=== PATIENT | male | born 1950 | race Asian ===

== ENCOUNTER 2017-05-02 07:19 | Outpatient (CLI) | payer OTHER ==
[2017-05-02 12:26] LABS: HEMOGLOBIN A1C 0.48 g/dL
[2017-05-02 12:29] LABS: ALBUMIN/GLOBULIN RATIO 1.1 (1.0-2.2); BILIRUBIN,TOTAL 0.9 mg/dL (0.2-1.0); BUN - BLOOD UREA NITROGEN 20 mg/dL (6-20); CALCIUM 9.1 mg/dL (8.5-10.3); CARBON DIOXIDE - CO2 28 mmol/L (21-32); CHLORIDE 105 mmol/L (101-111); CHOL/HDL RATIO 3.6 (<5.0); CHOLESTEROL 199 mg/dL; GFR - MDRD 74 (>89); GLUCOSE 115 mg/dL (70-100); HDL CHOLESTEROL 56 mg/dL; POTASSIUM 4.2 mmol/L (3.5-5.0); SODIUM 140 mmol/L (135-145); TOTAL PROTEIN 7.3 g/dL (6.7-8.2); TRIGLYCERIDES 154 mg/dL; URIC ACID 10.1 mg/dL (2.6-7.2); VLDL CHOLESTEROL 31 mg/dL
[2017-05-02 12:30] LABS: PSA TOTAL 2.15 ng/mL (0.000-2.000)
== END 2017-05-02 07:20 | disposition home or self-care (01) ==
LOC: LAB.F 07:19
PROVIDERS: ATTEND Family Medicine
DX: M10.9 Gout, unspecified (principal); E78.5 Hyperlipidemia, unspecified; I10 Essential (primary) hypertension; Z12.5 Encounter for screening for malignant neoplasm of prostate
CPT/HCPCS: 36415; 80053; 80061; 83036; 84153; 84403; 84550

== ENCOUNTER 2017-06-01 07:30 | Outpatient (CLI) | payer OTHER ==
[2017-06-01 10:55] LABS: PSA FREE 0.25 ng/mL (0.16-2.81)
[2017-06-01 10:56] LABS: PSA TOTAL 1.38 ng/mL (0.000-2.000)
== END 2017-06-01 07:31 | disposition home or self-care (01) ==
LOC: LAB.F 07:30
PROVIDERS: ATTEND Physician Assistant Medical
DX: R97.20 Elevated prostate specific antigen [PSA] (principal)
CPT/HCPCS: 36415; 84154

== ENCOUNTER 2018-06-04 07:17 | Outpatient (CLI) | payer OTHER ==
[2018-06-04 12:27] LABS: ALBUMIN 3.9 g/dL (3.2-5.5); ALBUMIN/GLOBULIN RATIO 1.1 (1.0-2.2); ALKALINE PHOSPHATASE 64 IU/L (42-121); ALT ALANINE AMINOTRANSFERASE 25 IU/L (10-60); AST ASPARTATE AMINOTRANSFERASE 33 IU/L (10-42); BASOPHILS # (AUTO) 0.1 10^3/uL (0.0-0.1); BASOPHILS % (AUTO) 1.1 %; BILIRUBIN,TOTAL 1.2 mg/dL (0.2-1.0); BUN - BLOOD UREA NITROGEN 17 mg/dL (6-20); CARBON DIOXIDE - CO2 25 mmol/L (21-32); CHLORIDE 103 mmol/L (101-111); CHOL/HDL RATIO 3.6 (<5.0); CHOLESTEROL 208 mg/dL; EOSINOPHILS # (AUTO) 0.4 10^3/uL (0.0-0.7); EOSINOPHILS % (AUTO) 7.5 %; GFR - MDRD 74 (>89); GLUCOSE 101 mg/dL (70-100); HDL CHOLESTEROL 58 mg/dL; HGB - HEMOGLOBIN 13.2 g/dL (14.0-18.0); LDL CHOLESTEROL,CALCULATED 104 mg/dL; LDL/HDL RATIO 1.8 (<3.6); LYMPHOCYTES # (AUTO) 2.4 10^3/uL (1.5-3.5); LYMPHOCYTES % (AUTO) 42.6 %; MEAN CORPUSCULAR HEMOGLOBIN 21.3 pg (27.0-31.0); MEAN CORPUSCULAR HGB CONC 30.8 g/dL (32.0-36.0); MEAN CORPUSCULAR VOLUME 69.1 fL (80.0-94.0); MEAN PLATELET VOLUME 9.1 fL (7.4-11.4); MONOCYTES # (AUTO) 0.6 10^3/uL (0.0-1.0); MONOCYTES % (AUTO) 10.3 %; NEUTROPHILS # (AUTO) 2.2 10^3/uL (1.5-6.6); NEUTROPHILS % (AUTO) 38.5 %; PLT - PLATELET COUNT 175 10^3/uL (130-450); RED CELL DISTRIBUTION WIDTH 16.6 % (12.0-15.0); SODIUM 137 mmol/L (135-145); TOTAL PROTEIN 7.5 g/dL (6.7-8.2); VLDL CHOLESTEROL 46 mg/dL; WHITE BLOOD COUNT 5.7 x10^3/uL (4.8-10.8)
[2018-06-04 13:50] LABS: PLATELET ESTIMATE, MANUAL NORMAL (130-450,000) (NORMAL); PLATELET MORPHOLOGY NORMAL APPEARANCE (NORMAL)
== END 2018-06-04 07:18 | disposition home or self-care (01) ==
LOC: LAB.F 07:17
PROVIDERS: ATTEND Physician Assistant Medical
DX: I10 Essential (primary) hypertension (principal); E78.5 Hyperlipidemia, unspecified; Z12.5 Encounter for screening for malignant neoplasm of prostate
CPT/HCPCS: 36415; 80053; 80061; 83721; 84153; 85025

== ENCOUNTER 2018-07-24 07:13 | Outpatient (CLI) | payer OTHER ==
[2018-07-24 11:21] LABS: BASOPHILS # (AUTO) 0.1 10^3/uL (0.0-0.1); BASOPHILS % (AUTO) 0.9 %; EOSINOPHILS # (AUTO) 0.4 10^3/uL (0.0-0.7); EOSINOPHILS % (AUTO) 5.8 %; HGB - HEMOGLOBIN 12.3 g/dL (14.0-18.0); LYMPHOCYTES # (AUTO) 2.8 10^3/uL (1.5-3.5); LYMPHOCYTES % (AUTO) 40.7 %; MEAN CORPUSCULAR HEMOGLOBIN 21.5 pg (27.0-31.0); MEAN CORPUSCULAR HGB CONC 31.5 g/dL (32.0-36.0); MEAN PLATELET VOLUME 8.4 fL (7.4-11.4); MONOCYTES # (AUTO) 0.6 10^3/uL (0.0-1.0); MONOCYTES % (AUTO) 8.7 %; NEUTROPHILS # (AUTO) 3.1 10^3/uL (1.5-6.6); NEUTROPHILS % (AUTO) 43.9 %; PLT - PLATELET COUNT 238 10^3/uL (130-450); RED BLOOD COUNT 5.72 10^6/uL (4.70-6.10); RED CELL DISTRIBUTION WIDTH 16.5 % (12.0-15.0)
[2018-07-24 11:38] LABS: RBC MORPHOLOGY (MULTIPLE) 1+ ANISOCYTOSIS (NORMAL)
== END 2018-07-24 07:14 | disposition home or self-care (01) ==
LOC: LAB.F 07:13
PROVIDERS: ATTEND Physician Assistant Medical
DX: D64.9 Anemia, unspecified (principal)
CPT/HCPCS: 36415; 85025

== ENCOUNTER 2018-08-14 07:58 | Outpatient (CLI) | payer OTHER | END 2018-08-14 07:59 | disposition home or self-care (01) | LOC: LAB.F 07:58 | PROVIDERS: ATTEND Physician Assistant Medical | DX: D64.9 Anemia, unspecified (principal); E83.110 Hereditary hemochromatosis | CPT/HCPCS: 36415; 82728 ==

== ENCOUNTER 2019-07-19 07:30 | Outpatient (CLI) | payer OTHER ==
[2019-07-19 10:20] LABS: BASOPHILS % (AUTO) 0.7 %; EOSINOPHILS # (AUTO) 0.3 10^3/uL (0.0-0.7); HGB - HEMOGLOBIN 11.6 g/dL (14.0-18.0); LYMPHOCYTES # (AUTO) 2.7 10^3/uL (1.5-3.5); LYMPHOCYTES % (AUTO) 44.1 %; MEAN CORPUSCULAR HGB CONC 30.9 g/dL (32.0-36.0); MEAN PLATELET VOLUME 10.5 fL (7.4-11.4); MONOCYTES # (AUTO) 0.6 10^3/uL (0.0-1.0); MONOCYTES % (AUTO) 9.6 %; NEUTROPHILS # (AUTO) 2.4 10^3/uL (1.5-6.6); NEUTROPHILS % (AUTO) 40.3 %; PLT - PLATELET COUNT 216 10^3/uL (130-450); RED BLOOD COUNT 5.53 10^6/uL (4.70-6.10)
[2019-07-19 10:52] LABS: ALBUMIN 3.5 g/dL (3.2-5.5); ALKALINE PHOSPHATASE 61 IU/L (42-121); ALT ALANINE AMINOTRANSFERASE 22 IU/L (10-60); AST ASPARTATE AMINOTRANSFERASE 32 IU/L (10-42); BILIRUBIN,TOTAL 0.9 mg/dL (0.2-1.0); BUN - BLOOD UREA NITROGEN 21 mg/dL (6-20); CALCIUM 8.7 mg/dL (8.5-10.3); CARBON DIOXIDE - CO2 26 mmol/L (21-32); CHLORIDE 108 mmol/L (101-111); CHOL/HDL RATIO 3.9 (<5.0); CHOLESTEROL 220 mg/dL; CREATININE 0.9 mg/dL (0.6-1.2); GFR - MDRD 83 (>89); GLUCOSE 97 mg/dL (70-100); HB2 TOTAL 12.3 g/dL; HDL CHOLESTEROL 57 mg/dL; HEMOGLOBIN A1C 0.5 g/dL; HEMOGLOBIN A1C % 5.9 % (4.6-6.2); LDL CHOLESTEROL,CALCULATED 133 mg/dL; LDL/HDL RATIO 2.3 (<3.6); SODIUM 141 mmol/L (135-145); TOTAL PROTEIN 6.9 g/dL (6.7-8.2); URIC ACID 9.3 mg/dL (2.6-7.2); VLDL CHOLESTEROL 30 mg/dL
== END 2019-07-19 07:31 | disposition home or self-care (01) ==
LOC: LAB.S 07:30
PROVIDERS: ATTEND Physician Assistant Medical
DX: I10 Essential (primary) hypertension (principal); R73.01 Impaired fasting glucose; E78.5 Hyperlipidemia, unspecified; M10.9 Gout, unspecified; E83.110 Hereditary hemochromatosis
CPT/HCPCS: 36415; 80053; 80061; 82728; 83036; 83721; 84550; 85025

== ENCOUNTER → 2021-01-01 | Outpatient (CLI) | payer OTHER ==
--- NOTE | 2021-01-01 10:23 | XRAY Report ---
PROCEDURE: Wrist 3 View LT INDICATIONS: LEFT CARPAL TUNNEL SYNDROME TECHNIQUE: 3 views of the wrist were acquired. COMPARISON: None FINDINGS: Bones: No fractures or dislocations. There is diffuse joint space loss of the radiocarpal articulati on. Corticated fragmentation of the ulnar styloid. There are severe, chronic appearing degenerative c hanges partially seen at the fifth PIP joint including osseous remodeling and erosive changes of the fifth proximal phalanx head. There are moderate degenerative change at the first MCP joint. No suspic ious bony lesions. Scaphoid view: Not performed Soft tissues: No suspicious soft tissue calcifications. Soft tissue thickening and densities surrou nding the distal ulna and ulnar styloid. Partially imaged soft tissue thickening around the fifth pro ximal phalanx and focal dorsal thickening over the second MCP joint. Increased soft tissue density ad jacent to the first and fifth MCP joint as well. IMPRESSION: 1. There is diffuse joint space loss at the radiocarpal articulation. 2. Soft tissue pannus formation at the ulnar styloid, first, second, fifth MCP joints, and erosive ch anges at the fifth proximal phalanx head.. Reviewed by: Kassy Mcneal MD on 01/01/2021 9:21 AM [place] Approved by: Kassy Mcneal MD on 01/01/2021 9:21 AM [place] Station ID: [id number]
== END ==
LOC: DI.N 07:00
PROVIDERS: ATTEND Orthopaedic Surgery
DX: G56.02 Carpal tunnel syndrome, left upper limb (principal)

== ENCOUNTER 2021-03-04 10:23 | Outpatient (CLI) | payer MEDICARE | END 2021-03-04 10:24 | disposition critical access hospital (66) | LOC: EMS 10:23 | DX: R40.20 Unspecified coma (principal) | CPT/HCPCS: A0425; A0427 ==

== ENCOUNTER 2021-03-04 10:42 | Emergency (ER) | payer OTHER ==
[2021-03-04] MEDS ORDERED: MIDAZOLAM 2 MG/2 ML VIAL ONE (10:55)
[2021-03-04] MEDS ORDERED: SODIUM CHLORIDE 0.9% 1,000 ML IV STA (10:56)
[2021-03-04] MEDS ORDERED: ASPIRIN CHEW 81 MG TABLET PO STA (10:56)
[2021-03-04] MEDS ORDERED: AMIODARONE 150 MG/100 ML 100 ML IV ONE (10:57)
--- OUTSIDE RECORDS SUMMARY | 2021-03-04 10:59 | EXTERNAL MEDICAL SUMMARY RPT | Continuity of Care Document ---
:1950 Demographics Phone Unavailable Preferred Language Unknown Marital Status Unknown Mosque Affiliation Unknown Race Unknown Ethnic Group Unknown Author Organization [place] Address [address] [id number] Phone Social History date description facility [phone]
[2021-03-04] MEDS ORDERED: AMIODARONE 360 MG/200 ML 200 ML IV ONE (11:06)
[2021-03-04] MEDS ORDERED: ASPIRIN 325 MG TABLET PO STA (11:06)
[2021-03-04 11:07] LABS: BASOPHILS % (AUTO) 0.4 %; EOSINOPHILS # (AUTO) 0.2 10^3/uL (0.0-0.7); EOSINOPHILS % (AUTO) 1.8 %; HCT - HEMATOCRIT 33.1 % (42.0-52.0); HGB - HEMOGLOBIN 10.2 g/dL (14.0-18.0); LYMPHOCYTES # (AUTO) 4.7 10^3/uL (1.5-3.5); LYMPHOCYTES % (AUTO) 43.1 %; MEAN CORPUSCULAR HEMOGLOBIN 20.6 pg (27.0-31.0); MEAN CORPUSCULAR HGB CONC 30.8 g/dL (32.0-36.0); MEAN CORPUSCULAR VOLUME 66.7 fL (80.0-94.0); MEAN PLATELET VOLUME 9.9 fL (7.4-11.4); MONOCYTES # (AUTO) 0.8 10^3/uL (0.0-1.0); MONOCYTES % (AUTO) 7.4 %; NEUTROPHILS # (AUTO) 4.8 10^3/uL (1.5-6.6); NEUTROPHILS % (AUTO) 43.6 %; NRBC ABSOLUTE COUNT (AUTO) 0.04 x10^3/uL; NUCLEATED RED BLOOD CELLS AUTO 0.4 /100WBC; PLT - PLATELET COUNT 245 10^3/uL (130-450); RED BLOOD COUNT 4.96 10^6/uL (4.70-6.10); RED CELL DISTRIBUTION WIDTH 17.5 % (12.0-15.0); WHITE BLOOD COUNT 10.9 x10^3/uL (4.8-10.8)
[2021-03-04] MEDS ORDERED: PROPOFOL 500 MG/50 ML 500 MG/50 ML VIAL IV STA (11:08)
[2021-03-04] MEDS ORDERED: fentaNYL 100 MCG/2 ML VIAL ONE (11:08)
[2021-03-04] MEDS ORDERED: fentaNYL 100 MCG/2 ML VIAL IVP STA (11:08)
[2021-03-04] MEDS ORDERED: LIDOCAINE 2000 MG/500 ML 2,000 MG/500 ML BAG IV STA (11:09)
[2021-03-04 11:11] VITALS: BP 149/100
--- NOTE | 2021-03-04 11:17 | ED Physician Documentation ---
History of Present Illness - Stated complaint Stated Complaint: CPR - Chief complaint Chief Complaint: Cardiac - History obtained from History obtained from: EMS - Additonal information Additional information: 70yM with pmh htn presents s/p witnessed cardiac arrest with bystander (son) initiated CPR right away. on ems arrival he was found to be in vfib, shocked, with rosc. Epi was administered and lidocaine drip started. patient was intubated and brought to the ed. On arrival, strong concern for cardiac ischemia and patient was emergently transferred to [facility] for cardiac evaluation. further history limited by patient acuity. Review of Systems Unable to obtain: Other (ROS unable to obtain 2/2 patient acuity) PD PAST MEDICAL HISTORY - Past Medical History Cardiovascular: None Respiratory: None Neuro: None Endocrine/Autoimmune: None GI: None : None HEENT: None Psych: None Musculoskeletal: None Derm: None - Present Medications Home Medications: Ambulatory Orders Medication Instructions Recorded Confirmed Home Medications Unobtainable 03/04/21 03/04/21 [HOME MEDICATIONS UNOBTAINABLE] - Allergies Allergies/Adverse Reactions: Allergies Allergy/AdvReac Type Severity Reaction Status Date / Time No Known Drug Allergies Allergy Verified 09/25/18 15:44 PD ED PE NORMAL - Vitals Vital signs reviewed: Yes - General General: Other (intubated with ETT in place) - HEENT HEENT: Atraumatic, PERRL, Other (intubated) - Neck Neck: Other (no deformity) - Cardiac Cardiac: Strong equal pulses - Respiratory Respiratory: Other (BL breath sounds) - Abdomen Abdomen: Non tender, Non distended - Male Male : Other (duckworth placed in the ED) - Derm Derm: Warm and dry - Extremities Extremities: No deformity - Neuro Neuro: Other (intubated, gag intact. pupillary response intact) - Psych Psych: Other (intubated, post - ROSC) Results - Vitals Vitals: Vital Signs - 24 hr 03/04/21 03/04/21 10:41 11:06 Temperature 33.7 C L Heart Rate 77 82 Blood Pressure 149/100 H O2 Saturation 99 Oxygen O2 Source Ambu bag - Labs Labs: Laboratory Tests 03/04/21 03/04/21 03/04/21 11:00 11:00 11:00 WBC 10.9 H RBC 4.96 Hgb 10.2 L Hct 33.1 L MCV 66.7 L MCH 20.6 L MCHC 30.8 L RDW 17.5 H Plt Count 245 MPV 9.9 Neut # (Auto) 4.8 Lymph # (Auto) 4.7 H [place] # (Auto) 0.8 Eos # (Auto) 0.2 Baso # (Auto) 0.0 Absolute Nucleated RBC 0.04 Nucleated RBC % 0.4 Bld Gas Analysis Time Sample Site ABG pH ABG pCO2 ABG pO2 ABG HCO3 ABG Total CO2 ABG O2 Saturation ABG Base Excess Won Test Respiration Rate O2 Delivery Device Vent Mode FiO2 Tidal Volume PEEP Sodium 138 Potassium 3.7 Chloride 107 Carbon Dioxide 15 L Anion Gap 16.0 H BUN 30 H Creatinine 1.3 H Estimated GFR (MDRD) 54 L Glucose 236 H Calcium 8.5 Total Bilirubin 1.4 H AST 119 H ALT 111 H Alkaline Phosphatase 73 Troponin I High Sens 221.3 H* Total Protein 6.7 Albumin 3.7 Globulin 3.0 Albumin/Globulin Ratio 1.2 Lipase 51 Nasal Adenovirus (PCR) Nasal B. parapertussis DNA (PCR) Nasal Coronavir 229E PCR Nasal Coronavir HKU1 PCR Nasal Coronavir NL63 PCR Nasal Coronavir OC43 PCR Nasal Enterovir/Rhinovir PCR Nasal Influenza B PCR Nasal Influenza A PCR Nasal Parainfluen 1 PCR Nasal Parainfluen 2 PCR Nasal Parainfluen 3 PCR Nasal Parainfluen 4 PCR Nasal RSV (PCR) Nasal B.pertussis DNA PCR Nasal C.pneumoniae (PCR) Ian Human Metapneumo PCR Nasal M.pneumoniae (PCR) Nasal SARS-CoV-2 (PCR) 03/04/21 03/04/21 11:07 11:17 WBC RBC Hgb Hct MCV MCH MCHC RDW Plt Count MPV Neut # (Auto) Lymph # (Auto) [place] # (Auto) Eos # (Auto) Baso # (Auto) Absolute Nucleated RBC Nucleated RBC % Bld Gas Analysis Time 1114 Sample Site RIGHT RADIAL ABG pH 7.25 L ABG pCO2 36 ABG pO2 439 H* ABG HCO3 15.4 L ABG Total CO2 16.5 L ABG O2 Saturation 100 H ABG Base Excess -11.0 L Won Test POSITIVE Respiration Rate 20 O2 Delivery Device VENTILATOR Vent Mode ASSIST/CONTROL FiO2 100.00 Tidal Volume 450 PEEP 5 Sodium Potassium Chloride Carbon Dioxide Anion Gap BUN Creatinine Estimated GFR (MDRD) Glucose Calcium Total Bilirubin AST ALT Alkaline Phosphatase Troponin I High Sens Total Protein Albumin Globulin Albumin/Globulin Ratio Lipase Nasal Adenovirus (PCR) NOT DETECTED Nasal B. parapertussis DNA (PCR) NOT DETECTED Nasal Coronavir 229E PCR NOT DETECTED Nasal Coronavir HKU1 PCR NOT DETECTED Nasal Coronavir NL63 PCR NOT DETECTED Nasal Coronavir OC43 PCR NOT DETECTED Nasal Enterovir/Rhinovir PCR NOT DETECTED Nasal Influenza B PCR NOT DETECTED Nasal Influenza A PCR NOT DETECTED Nasal Parainfluen 1 PCR NOT DETECTED Nasal Parainfluen 2 PCR NOT DETECTED Nasal Parainfluen 3 PCR NOT DETECTED Nasal Parainfluen 4 PCR NOT DETECTED Nasal RSV (PCR) NOT DETECTED Nasal B.pertussis DNA PCR NOT DETECTED Nasal C.pneumoniae (PCR) NOT DETECTED Ian Human Metapneumo PCR NOT DETECTED Nasal M.pneumoniae (PCR) NOT DETECTED Nasal SARS-CoV-2 (PCR) NOT DETECTED PD MEDICAL DECISION MAKING - ED course ED course: 70-year-old man brought in by EMS status post witnessed arrest by son with bystander CPR started on scene. Upon EMS arrival he was found to be in V. fib, shocked with ROSC. They gave lidocaine at 2 mcg and found his EKG to be concerning for possible STEMI. Upon arrival to the ED patient intubated, gagging at vent. Push dose fentanyl, versed given for sedation. NG placed, ASA 324 given. ekg concerning for cardiac ischemia so code stemi was called to [facility]. d/w ED Dr. Rodriguez who accepts the patient in transfer and sent him the EKGs. awaiting discussion with cardiology. d/w Dr. Rausch, hospitalist accepting. Life flight wheeling him out now. - Critical Care Time(min): 30 Time Includes: Direct patient care, Reassess patient, Document care, Coordinate care, Medical consult, Family consult for vt oct Data interpretation: Labs, Pulse ox, ABG, CXR Departure - Departure Disposition: 02 Transfer Acute Care Hosp Clinical Impression: STEMI (ST elevation myocardial infarction), Cardiac arrest, Ventricular fibrillation Discharge Date/Time: 03/04/21 11:30
[2021-03-04 11:19] LABS: ABG PCO2 36 mmHg (34-45); ABG PH 7.25 (7.35-7.45)
[2021-03-04 11:19] LABS: ALBUMIN 3.7 g/dL (3.2-5.5); ALBUMIN/GLOBULIN RATIO 1.2 (1.0-2.2); BILIRUBIN,TOTAL 1.4 mg/dL (0.2-1.0); CALCIUM 8.5 mg/dL (8.5-10.3); CREATININE 1.3 mg/dL (0.6-1.2); POTASSIUM 3.7 mmol/L (3.5-5.0); TOTAL PROTEIN 6.7 g/dL (6.7-8.2)
[2021-03-04 11:20] LABS: ABG HCO3 15.4 mmol/L (22.0-26.0); ABG OXYGEN SATURATION 100 % (94-98); ABG TCO2 16.5 MMOL/L (21.0-29.0); ALLEN TEST POSITIVE
[2021-03-04 11:21] LABS: ABG MODE OF VENTILATION ASSIST/CONTROL; ABG RESPIRATORY RATE 20 b/min
--- NOTE | 2021-03-04 11:21 | XRAY Report ---
PROCEDURE: Chest for Line Placement INDICATIONS: CHEST PAIN TECHNIQUE: One view of the chest was acquired. COMPARISON: 12/22/2010. FINDINGS: Surgical changes and devices: Multiple monitoring wires and medical devices project over the chest. D efibrillator pads project over the lower chest. Endotracheal tube tip projects approximately 6.1 cm a agnes the carlos. Nasogastric tube extends below the level of the diaphragm with the distal tip projec ting in the left upper abdomen. The distal side-port is not visualized secondary to overlapping medic al devices projecting in the left upper abdomen. However, the expected position of the distal side-po rt should be below the level of the gastroesophageal junction. Lungs and pleura: No pleural effusions or pneumothorax. Lungs are clear. Mediastinum: Mediastinal contours appear stable. Heart size is normal. Bones and chest wall: No suspicious bony lesions. No evidence for displaced rib fractures. Overlyin g soft tissues appear unremarkable. IMPRESSION: 1. Endotracheal tube tip projects approximately 6.1 cm above the carlos. 2. Nasogastric tube extends below the level of the diaphragm with the distal tip projecting over the left upper abdomen. 3. No acute cardiopulmonary abnormalities visualized. No acute rib fractures seen. Reviewed by: Renan Pham MD on 03/04/2021 10:19 AM [place]KK[place] Approved by: Renan Pham MD on 03/04/2021 10:19 AM [place]KK[place] Station ID: [id number]
[2021-03-04 11:27] LABS: ABG PO2 439 mmHg (80-100)
[2021-03-04] MEDS ORDERED: MIDAZOLAM 2 MG/2 ML VIAL IVP STA (12:09)
[2021-03-04 12:21] LABS: B. PARAPERTUSSIS- RESP PCR PAN NOT DETECTED; B. PERTUSSIS- RESP PCR PANEL NOT DETECTED; C. PNEUMONIAE- RESP PCR PANEL NOT DETECTED; CORONAVIRUS 229E-RESP PCR NOT DETECTED; CORONAVIRUS HKU1-RESP PCR NOT DETECTED; CORONAVIRUS NL63-RESP PCR NOT DETECTED; CORONAVIRUS OC43-RESP PCR NOT DETECTED; HUMAN METAPNEUMOVIRUS NOT DETECTED; INFLUENZA A- RESP PCR PANEL NOT DETECTED; INFLUENZA B - RESP PCR PANEL NOT DETECTED; M. PNEUMONIAE- RESP PCR PANEL NOT DETECTED; PARAINFLUENZA VIRUS 1 NOT DETECTED; PARAINFLUENZA VIRUS 2 NOT DETECTED; PARAINFLUENZA VIRUS 3 NOT DETECTED; PARAINFLUENZA VIRUS 4 NOT DETECTED; RHINOVIRUS/ENTEROVIRUS NOT DETECTED; RSV- RESP PCR PANEL NOT DETECTED; SARS-CoV-2 -RESP PCR PANEL NOT DETECTED
== END 2021-03-04 11:30 | disposition short-term general hospital (02) ==
LOC: EDUNIT# → ED 10:42
DX: I21.3 ST elevation (STEMI) myocardial infarction of unspecified site (principal); I46.2 Cardiac arrest due to underlying cardiac condition; I49.01 Ventricular fibrillation; Z20.822 Contact with and (suspected) exposure to COVID-19
CPT/HCPCS: 0202U; 36415; 36600; 71045; 80053; 82803; 83690; 84484; 85025; 93005; 94002; 96374; 99291; 94770

== ENCOUNTER 2021-04-09 10:00 | Outpatient (CLI) | payer MEDICARE | END 2021-04-09 23:59 | disposition home or self-care (01) | LOC: COV 10:00 | PROVIDERS: ATTEND Internal Medicine Cardiovascular Disease | DX: Z01.812 Encounter for preprocedural laboratory examination (principal); I25.10 Atherosclerotic heart disease of native coronary artery without angina pectoris; Z20.822 Contact with and (suspected) exposure to COVID-19 ==

== ENCOUNTER 2021-05-02 12:13 | Outpatient (CLI) | payer MEDICARE ==
[2021-05-02 18:29] LABS: BASOPHILS % (AUTO) 0.5 %; EOSINOPHILS # (AUTO) 0.2 10^3/uL (0.0-0.7); EOSINOPHILS % (AUTO) 2.8 %; HCT - HEMATOCRIT 33.4 % (42.0-52.0); HGB - HEMOGLOBIN 10.3 g/dL (14.0-18.0); LYMPHOCYTES # (AUTO) 3.8 10^3/uL (1.5-3.5); LYMPHOCYTES % (AUTO) 50.6 %; MEAN CORPUSCULAR HEMOGLOBIN 21.8 pg (27.0-31.0); MEAN CORPUSCULAR HGB CONC 30.8 g/dL (32.0-36.0); MEAN CORPUSCULAR VOLUME 70.8 fL (80.0-94.0); MEAN PLATELET VOLUME 10.7 fL (7.4-11.4); MONOCYTES % (AUTO) 13.1 %; NEUTROPHILS # (AUTO) 2.4 10^3/uL (1.5-6.6); NEUTROPHILS % (AUTO) 32.1 %; PLT - PLATELET COUNT 257 10^3/uL (130-450); RED BLOOD COUNT 4.72 10^6/uL (4.70-6.10); RED CELL DISTRIBUTION WIDTH 19.6 % (12.0-15.0); WHITE BLOOD COUNT 7.4 x10^3/uL (4.8-10.8)
== END 2021-05-02 12:14 | disposition home or self-care (01) ==
LOC: LAB.S 12:13
PROVIDERS: ATTEND Physician Assistant
DX: D64.9 Anemia, unspecified (principal)
CPT/HCPCS: 36415; 85025

== ENCOUNTER 2021-07-22 16:09 | Outpatient (CLI) | payer MEDICARE ==
[2021-07-22 20:13] LABS: WHITE BLOOD COUNT 6.8 x10^3/uL (4.8-10.8)
[2021-07-22 20:14] LABS: BASOPHILS % (AUTO) 0.6 %; EOSINOPHILS # (AUTO) 0.2 10^3/uL (0.0-0.7); EOSINOPHILS % (AUTO) 2.9 %; HCT - HEMATOCRIT 34.1 % (42.0-52.0); HGB - HEMOGLOBIN 10.8 g/dL (14.0-18.0); LYMPHOCYTES # (AUTO) 2.6 10^3/uL (1.5-3.5); LYMPHOCYTES % (AUTO) 38.6 %; MEAN CORPUSCULAR HEMOGLOBIN 20.9 pg (27.0-31.0); MEAN CORPUSCULAR HGB CONC 31.7 g/dL (32.0-36.0); MEAN PLATELET VOLUME 10.4 fL (7.4-11.4); MONOCYTES # (AUTO) 0.8 10^3/uL (0.0-1.0); MONOCYTES % (AUTO) 12.4 %; NEUTROPHILS % (AUTO) 44.3 %; PLATELET MORPHOLOGY NORMAL APPEARANCE (NORMAL); PLT - PLATELET COUNT 223 10^3/uL (130-450); RED BLOOD COUNT 5.17 10^6/uL (4.70-6.10); RED CELL DISTRIBUTION WIDTH 41.1 % (12.0-15.0); SLIDE REVIEW? Indicated
[2021-07-22 20:15] LABS: PLATELET ESTIMATE, MANUAL NORMAL (130-450,000) (NORMAL); RBC MORPHOLOGY (MULTIPLE) 1+ MICROCYTOSIS (NORMAL); WBC MORPHOLOGY (MULTIPLE) NORMAL APPEARANCE (NORMAL)
[2021-07-22 20:25] LABS: ALBUMIN 3.7 g/dL (3.2-5.5); ALBUMIN/GLOBULIN RATIO 1.3 (1.0-2.2); BILIRUBIN,TOTAL 0.7 mg/dL (0.2-1.0); CALCIUM 8.7 mg/dL (8.5-10.3); CREATININE 1.2 mg/dL (0.6-1.2); POTASSIUM 4.5 mmol/L (3.5-5.0); TOTAL PROTEIN 6.5 g/dL (6.7-8.2); URIC ACID 5.6 mg/dL (2.6-7.2)
== END 2021-07-22 16:10 | disposition home or self-care (01) ==
LOC: LAB.S 16:09
PROVIDERS: ATTEND Internal Medicine
DX: M1A.09X0 Idiopathic chronic gout, multiple sites, without tophus (tophi) (principal); Z79.899 Other long term (current) drug therapy
CPT/HCPCS: 36415; 80053; 84550; 85025

== ENCOUNTER 2021-10-21 06:05 | Outpatient (CLI) | payer MEDICARE | END 2021-10-21 06:06 | disposition short-term general hospital (02) | LOC: EMS 06:05 | DX: I46.9 Cardiac arrest, cause unspecified (principal) | CPT/HCPCS: A0425; A0433 ==